=== PATIENT | female | born 1955 | race Caucasian/White ===

== ENCOUNTER 2018-12-19 19:26 | Emergency (ER) | payer MEDICARE ==
[~2018-12-19] VITALS: Ht 165.1 cm; Wt 63.6 kg
[~2018-12-19 19:26] MED LIST: ALPR-624 PO; ASPI-1265 PO; DESV100T2 PO; ESOM20CA33 PO; EXEN2VIA SQ; LANTUS SQ; MAGN400C PO; METF500T PO; PREVCR VG; TERB250T4 PO; VERA120T7 PO
[2018-12-19] MEDS ORDERED: LORazepam 2 mg/ml vial IV ONE (19:40)
--- NOTE | 2018-12-19 20:28 | NUR ---
PT RETURNED FROM CT. PT WAS COOPERATIVE AND CALM FOR CT. SHE CONTINUES TO MOAN OUT AND CRY LOUDLY INTERMITTENTY. HR 101.
--- NOTE | 2018-12-19 21:09 | NUR ---
PT NEEDS DERMABOND AT BEDSIDE FOR EAR LAC REPAIR, ITEM OUT OF STOCK IN ER, FORENSIC ANTHROPOLOGIST AWARE AND LOOKING FOR IT NOW.
[2018-12-19] MEDS ORDERED: normal saline 1000ML IV soln IVB ONE (22:00)
[2018-12-19 22:27] LABS: BASOPHILS # (AUTO) 0.1 X10'3 (0-0.2); BASOPHILS % (AUTO) 0.8 % (0-1); EOSINOPHILS % (AUTO) 0.2 % (0-6); HEMATOCRIT 37.9 % (35.0-45.0); HEMOGLOBIN 12.6 g/dl (12.0-16.0); LYMPHOCYTES # (AUTO) 1.4 X10'3 (1.1-4.8); LYMPHOCYTES % (AUTO) 19.7 % (21-51); MEAN CORPUSCULAR HEMOGLOBIN 31.7 PG (27.0-31.0); MEAN CORPUSCULAR HGB CONC 33.2 g/dL (33.0-36.5); MEAN CORPUSCULAR VOLUME 95.3 FL (78-98); MONOCYTES # (AUTO) 0.4 X10'3 (0-0.9); MONOCYTES % (AUTO) 5.6 % (2-12); NEUTROPHILS # (AUTO) 5.4 X10'3 (1.8-7.7); NEUTROPHILS % (AUTO) 73.7 % (42-75); PLATELET COUNT 250 X10'3 (140-440); RED BLOOD COUNT 3.97 X10'6 (4.20-5.60); RED CELL DISTRIBUTION WIDTH 13.6 % (11.5-14.5); WHITE BLOOD COUNT 7.3 X10'3 (4.5-11.0)
[2018-12-19 22:53] LABS: ETHANOL 0.223 GM/DL (0.0-0.010)
[2018-12-19 23:34] LABS: GLUCOSE 275 MG/DL (70-104)
[2018-12-19 23:35] LABS: ANION GAP 13 (8-16); BILIRUBIN,TOTAL 0.2 MG/DL (0.1-1.0); BLOOD UREA NITROGEN 6 MG/DL (7-18); BUN/CREATININE RATIO 9.1 (6.6-38.0); CALCIUM 8.4 MG/DL (8.5-10.1); CHLORIDE 103 MMOL/L (99-107); CREATININE 0.66 MG/DL (0.40-0.90); MAGNESIUM 1.1 MG/DL (1.5-2.4); PHOSPHORUS 2.2 MG/DL (2.3-4.5); POTASSIUM 3.5 MMOL/L (3.5-5.1); SODIUM 139 MMOL/L (135-145); TOTAL CARBON DIOXIDE 22.9 MMOL/L (24-32); eGFR > 90 ML/MIN
[2018-12-19 23:36] LABS: ALANINE AMINOTRANSFERASE 28 U/L (12-78); ALBUMIN 3.3 G/DL (3.4-5.0); ALBUMIN/GLOBULIN RATIO 0.9 (1.1-1.5); ALKALINE PHOSPHATASE 71 IU/L (46-116); ASPARTATE AMINO TRANSFERASE 40 U/L (10-37); TOTAL PROTEIN 6.9 G/DL (6.4-8.2)
[2018-12-19] MEDS ORDERED: magnesium 2GM in 50ml NS 50 ML IV ONE (23:40)
[2018-12-20] MEDS ORDERED: HYDROcodone/acetaminophen 5mg/325mg tablet PO ONE (02:05)
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
[2018-12-20 02:38] LABS: URINE AMPHETAMINE SCREEN NEGATIVE (Neg); URINE BARBITUATE SCREEN NEGATIVE (Neg); URINE BENZODIAZEPINES SCREEN POSITIVE (Neg); URINE CANNABINOID SCREEN NEGATIVE (Neg); URINE COCAINE SCREEN NEGATIVE (Neg); URINE METHADONE SCREEN NEGATIVE (Neg); URINE OPIATE SCREEN NEGATIVE (Neg); URINE PHENCYCLIDINE SCREEN NEGATIVE (Neg)
--- NOTE | 2018-12-20 04:49 | NUR ---
PT REMAINS ASLEEP WITH STABLE VS.
[2018-12-20 06:16] VITALS: BP 155/95
--- NOTE | 2018-12-20 07:37 | NUR ---
PATIENT REMAINS ASLEEP ON [facility]. NURSE ATTEMPTED TO CALL CONTACT PHONE NUMBERS FOR [phone] AND DAUGHTER [phone]. NO ANSWER AT EITHER PHONE NUMBER AND UNABLE TO LEAVE MESSAGE.
--- NOTE | 2018-12-20 08:51 | NUR ---
AWAKE AND ORIENTED. PATIENT CALLED FAMILY FOR TRANSPORTATION, BUT UNABLE TO GET A RIDE FROM ANYONE. PATIENT WILL TAKE CAB TO DAUGHTER'S APARTMENT. UP TO BATHROOM TO WASH UP.
[2018-12-20] MEDS ORDERED: LIDOcaine 1% w/epiNEPHrine 1:200,000 30ml vial IM ONE (09:00)
--- NOTE | 2018-12-20 09:50 | NUR ---
PATIENT HAS LAC TO LEFT EAR PINNA. SUTURES ARE INDICATED PER ER MD. PATIENT INFORMED AND AGREES. RESTING ON JÚNIOR.
--- NOTE | 2018-12-20 10:30 | NUR ---
SUTURES TO LEFT EAR LAC PER PROVIDER. TOLERATED WELL.
--- NOTE | 2018-12-20 10:50 | NUR ---
UP IN ROOM. DRESSED FOR DC. IV REMOVED WITH TIP INTACT. TRANSPORTATION ARRANGEMENTS WITH CAB MADE. JUICE AND SNACK GIVEN.
== END 2018-12-20 11:05 | disposition home or self-care (01) ==
LOC: ER 19:26
DX: S01.81XA Laceration without foreign body of other part of head, initial encounter (principal); S01.312A Laceration without foreign body of left ear, initial encounter; E78.00 Pure hypercholesterolemia, unspecified; I10 Essential (primary) hypertension; E11.9 Type 2 diabetes mellitus without complications; F41.9 Anxiety disorder, unspecified; F32.9 Major depressive disorder, single episode, unspecified; F20.9 Schizophrenia, unspecified; Z90.710 Acquired absence of both cervix and uterus; Z88.2 Allergy status to sulfonamides; Z88.1 Allergy status to other antibiotic agents; Z79.82 Long term (current) use of aspirin; Z79.84 Long term (current) use of oral hypoglycemic drugs; Z79.899 Other long term (current) drug therapy; Z98.890 Other specified postprocedural states; W18.09XA Striking against other object with subsequent fall, initial encounter; Y93.89 Activity, other specified; Y92.89 Other specified places as the place of occurrence of the external cause; Y99.8 Other external cause status
CPT/HCPCS: 12011; 36415; 70450; 71045; 72125; 80053; 80305; 80320; 83735; 84100; 84484; 85025; 96365; 96366; 96375; 99284; J2060; J3475; J7030

== ENCOUNTER 2019-01-21 14:07 | Emergency (ER) | payer MEDICARE ==
[~2019-01-21] VITALS: Ht 165.1 cm; Wt 54.0 kg
[2019-01-21] MEDS ORDERED: ondansetron/PF 4mg/2ml inj IV ONE (15:40)
[2019-01-21] MEDS ORDERED: meclizine 12.5mg tablet PO ONE (15:40)
[2019-01-21 16:18] LABS: BASOPHILS # (AUTO) 0.1 X10'3 (0-0.2); BASOPHILS % (AUTO) 1.1 % (0-1); EOSINOPHILS # (AUTO) 0.1 X10'3 (0-0.9); EOSINOPHILS % (AUTO) 0.9 % (0-6); HEMATOCRIT 37.3 % (35.0-45.0); HEMOGLOBIN 12.4 g/dl (12.0-16.0); LYMPHOCYTES # (AUTO) 1.6 X10'3 (1.1-4.8); LYMPHOCYTES % (AUTO) 25.9 % (21-51); MEAN CORPUSCULAR HEMOGLOBIN 31.8 PG (27.0-31.0); MEAN CORPUSCULAR HGB CONC 33.4 g/dL (33.0-36.5); MEAN CORPUSCULAR VOLUME 95.1 FL (78-98); MEAN PLATELET VOLUME 6.9 FL (7.4-10.4); MONOCYTES # (AUTO) 0.5 X10'3 (0-0.9); MONOCYTES % (AUTO) 7.2 % (2-12); NEUTROPHILS # (AUTO) 4.1 X10'3 (1.8-7.7); NEUTROPHILS % (AUTO) 64.9 % (42-75); PLATELET COUNT 254 X10'3 (140-440); RED BLOOD COUNT 3.92 X10'6 (4.20-5.60); RED CELL DISTRIBUTION WIDTH 14.1 % (11.5-14.5); WHITE BLOOD COUNT 6.3 X10'3 (4.5-11.0)
[2019-01-21 16:40] LABS: ALBUMIN 3.4 G/DL (3.4-5.0); ALBUMIN/GLOBULIN RATIO 0.9 (1.1-1.5); ALKALINE PHOSPHATASE 113 IU/L (46-116); ANION GAP 7 (8-16); ASPARTATE AMINO TRANSFERASE 12 U/L (10-37); BILIRUBIN,TOTAL 0.2 MG/DL (0.1-1.0); BLOOD UREA NITROGEN 8 MG/DL (7-18); BUN/CREATININE RATIO 12.1 (6.6-38.0); CALCIUM 8.5 MG/DL (8.5-10.1); CHLORIDE 104 MMOL/L (99-107); CREATININE 0.66 MG/DL (0.40-0.90); GLUCOSE 272 MG/DL (70-104); POTASSIUM 3.8 MMOL/L (3.5-5.1); SODIUM 141 MMOL/L (135-145); TOTAL CARBON DIOXIDE 29.6 MMOL/L (24-32); TROPONIN I < 0.04 NG/ML (0.0-0.05); eGFR > 90 ML/MIN
[2019-01-21 16:53] LABS: ETHANOL < 0.010 GM/DL (0.0-0.010)
[2019-01-21 16:57] LABS: ALANINE AMINOTRANSFERASE 15 U/L (12-78)
[2019-01-21 17:35] LABS: CLARITY,URINE CLOUDY (Clear); COLOR,URINE YELLOW (Yellow); GLUCOSE, URINE >=1000 mg/dl (Neg); KETONES,URINE TRACE mg/dl (Neg); LEUKOCYTE ESTERASE ,URINE SMALL (Neg); NITRITES, URINE NEGATIVE (Neg); OCCULT BLOOD,URINE NEGATIVE (Neg); PROTEIN,URINE NEGATIVE (Neg); UA COLLECTION TYPE CLN CATCH MIDSTREAM; UROBILINOGEN,URINE 0.2 E.U/dL (0.2-1.0)
[2019-01-21 17:46] LABS: RBC,URINE NONE SEEN /HPF (0-2); URINE AMPHETAMINE SCREEN NEGATIVE (Neg); URINE BARBITUATE SCREEN NEGATIVE (Neg); URINE BENZODIAZEPINES SCREEN POSITIVE (Neg); URINE CANNABINOID SCREEN NEGATIVE (Neg); URINE COCAINE SCREEN NEGATIVE (Neg); URINE METHADONE SCREEN NEGATIVE (Neg); URINE OPIATE SCREEN NEGATIVE (Neg); URINE PHENCYCLIDINE SCREEN NEGATIVE (Neg); WBC,URINE 30-50 /HPF (0-4)
[2019-01-21 17:47] LABS: BACTERIA,URINE 4+ /HPF (Neg); TRANSITIONAL EPI CELLS,URINE FEW /HPF; WBC CLUMPS,URINE FEW /HPF (NEGATIVE)
[2019-01-21 17:48] LABS: SQUAMOUS EPITHELIAL CELL,UR MODERATE /LPF (FEW)
[2019-01-21 17:51] LABS: YEAST MANY /HPF (NEGATIVE)
[2019-01-21] MEDS ORDERED: CefTRIAXone 2gm/D5W 50ml 50 ML IV ONE (18:10)
[2019-01-21] MEDS ORDERED: ONDA8TAB6 PO (18:29)
[2019-01-21] MEDS ORDERED: MECL-111 PO (18:29)
[2019-01-21] MEDS ORDERED: CIPR-230 PO (18:29)
[2019-01-21 18:51] VITALS: BP 135/66
== END 2019-01-21 18:52 | disposition home or self-care (01) ==
LOC: ER 14:07
DX: H81.10 Benign paroxysmal vertigo, unspecified ear (principal); N39.0 Urinary tract infection, site not specified; E78.00 Pure hypercholesterolemia, unspecified; I10 Essential (primary) hypertension; E11.9 Type 2 diabetes mellitus without complications; F41.9 Anxiety disorder, unspecified; F32.9 Major depressive disorder, single episode, unspecified; F20.9 Schizophrenia, unspecified; Z90.710 Acquired absence of both cervix and uterus; Z98.890 Other specified postprocedural states; Z88.2 Allergy status to sulfonamides; Z88.1 Allergy status to other antibiotic agents; Z79.82 Long term (current) use of aspirin; Z79.4 Long term (current) use of insulin; Z79.899 Other long term (current) drug therapy
CPT/HCPCS: 36415; 70450; 71045; 80053; 80305; 80320; 81001; 82140; 84484; 85025; 85610; 87088; 93005; 96365; 96375; 99284; J0696; J2405; J8597

== ENCOUNTER 2019-03-05 21:14 | Emergency (ER) | payer MEDICARE ==
[~2019-03-05] VITALS: Ht 162.6 cm; Wt 63.6 kg
[~2019-03-05 21:14] MED LIST changes: +MECL-111 PO; +ONDA8TAB6 PO
--- NOTE | 2019-03-05 21:45 | NUR ---
CONTACTED POISON CONTROL DIRECTED TO ACCOMPLISH CHEM PANEL, ASA, TYLENOL,OBSERVE FOR THE NEXT 4 HRS FOR CONTINUED PARACHUTIST/COMBATANT DIVER QUALIFIED DEPRESSION AND SEDATION
[2019-03-05 22:01] LABS: BASOPHILS % (AUTO) 0.5 % (0-1); EOSINOPHILS # (AUTO) 0.1 X10'3 (0-0.9); EOSINOPHILS % (AUTO) 1.8 % (0-6); HEMOGLOBIN 11.9 g/dl (12.0-16.0); LYMPHOCYTES # (AUTO) 1.9 X10'3 (1.1-4.8); LYMPHOCYTES % (AUTO) 33.3 % (21-51); MEAN CORPUSCULAR HEMOGLOBIN 31.4 PG (27.0-31.0); MEAN CORPUSCULAR HGB CONC 33.2 g/dL (33.0-36.5); MEAN CORPUSCULAR VOLUME 94.8 FL (78-98); MEAN PLATELET VOLUME 6.7 FL (7.4-10.4); MONOCYTES # (AUTO) 0.4 X10'3 (0-0.9); MONOCYTES % (AUTO) 6.4 % (2-12); NEUTROPHILS # (AUTO) 3.3 X10'3 (1.8-7.7); PLATELET COUNT 328 X10'3 (140-440); RED CELL DISTRIBUTION WIDTH 14.6 % (11.5-14.5); WHITE BLOOD COUNT 5.6 X10'3 (4.5-11.0)
[2019-03-05 22:08] LABS: CLARITY,URINE CLEAR (Clear); COLOR,URINE YELLOW (Yellow); GLUCOSE, URINE >=1000 mg/dl (Neg); KETONES,URINE NEGATIVE (Neg); LEUKOCYTE ESTERASE ,URINE NEGATIVE (Neg); NITRITES, URINE NEGATIVE (Neg); OCCULT BLOOD,URINE TRACE-INTACT (Neg); PROTEIN,URINE NEGATIVE (Neg); UROBILINOGEN,URINE 0.2 E.U/dL (0.2-1.0)
[2019-03-05 22:11] LABS: UA COLLECTION TYPE NON-SPECIFIED
[2019-03-05 22:18] LABS: ALANINE AMINOTRANSFERASE 18 U/L (12-78); ALBUMIN 3.2 G/DL (3.4-5.0); ALBUMIN/GLOBULIN RATIO 0.8 (1.1-1.5); ALKALINE PHOSPHATASE 148 IU/L (46-116); ANION GAP 9 (8-16); ASPARTATE AMINO TRANSFERASE 17 U/L (10-37); BILIRUBIN,TOTAL 0.2 MG/DL (0.1-1.0); BLOOD UREA NITROGEN 7 MG/DL (7-18); BUN/CREATININE RATIO 11.1 (6.6-38.0); CALCIUM 8.7 MG/DL (8.5-10.1); CHLORIDE 106 MMOL/L (99-107); CREATININE 0.63 MG/DL (0.40-0.90); GLUCOSE 398 MG/DL (70-104); POTASSIUM 3.2 MMOL/L (3.5-5.1); SODIUM 143 MMOL/L (135-145); TOTAL PROTEIN 7.2 G/DL (6.4-8.2); eGFR > 90 ML/MIN
[2019-03-05 22:21] LABS: URINE AMPHETAMINE SCREEN NEGATIVE (Neg); URINE BARBITUATE SCREEN NEGATIVE (Neg); URINE BENZODIAZEPINES SCREEN NEGATIVE (Neg); URINE CANNABINOID SCREEN NEGATIVE (Neg); URINE COCAINE SCREEN NEGATIVE (Neg); URINE METHADONE SCREEN NEGATIVE (Neg); URINE OPIATE SCREEN NEGATIVE (Neg); URINE PHENCYCLIDINE SCREEN NEGATIVE (Neg)
[2019-03-05 22:22] LABS: BACTERIA,URINE FEW /HPF (Neg); MUCUS STRANDS NONE SEEN /LPF (Neg); RBC,URINE 0-2 /HPF (0-2); SQUAMOUS EPITHELIAL CELL,UR MANY /LPF (FEW); WBC,URINE 0-4 /HPF (0-4)
[2019-03-05 22:31] LABS: ETHANOL 0.175 GM/DL (0.0-0.010)
[2019-03-05] MEDS ORDERED: potassium Cl 20 mEq SR tablet PO STA (22:33)
[2019-03-05 22:34] LABS: ACETAMINOPHEN < 2.0 UG/ML (10-30)
[2019-03-05] MEDS ORDERED: insulin regular, human 10 units/0.1 ml syringe IV ONE (22:35)
[2019-03-05] MEDS ORDERED: normal saline 1000ML IV soln IVB ONE (22:35)
[2019-03-05] MEDS ORDERED: dextrose 50%-water 50ml dispensing syringe IV PRN ×2 (22:55)
[2019-03-05] MEDS ORDERED: dextrose ORAL solution 15 GM/59 ML bottle PO PRN ×2 (22:55)
[2019-03-05] MEDS ORDERED: glucagon, human recombinant 1mg kit SUBCUT PRN (22:55)
[2019-03-05] MEDS ORDERED: insulin Lispro (HumaLOG) vial - multi-dose SQ SCH (22:55)
[2019-03-05] MEDS ORDERED: MESSAGE TO PHARMACY PO ONE (22:55)
--- NOTE | 2019-03-05 23:16 | NUR ---
pt affirms s/i saying, "we lost everything. 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 my has dementia. we live in our van. I get depressed and took 5 xanax." pt reports being on antidepressants, but is unable to specify which one, currently. she is aox3. pt denies audio/visual hallucinations at this time. she is somnolent, but easily arousable and will engage if interaction initiated by others.
[2019-03-05 23:57] LABS: HEMOGLOBIN A1C 10.2 % (4.5-6.2)
--- NOTE | 2019-03-06 02:57 | NUR ---
PT REPORT PROVDED ADILENE NUNEZ. PT ESCORTED BY THIS RN TO OF BED 22.
--- NOTE | 2019-03-06 03:22 | NUR ---
The patient moved to bed 22 in the ER. Warm blanket provided. She was made aware of the psychiatric hold and plan of care was reviewed with her. She currently denies being suicidal but does state she has been very depressed and struggling with anxiety and poor sleep. She stated that she has had a lot of losses with her being ill and having dementia which caused them to lose their home. Recently they have being either living in a motel or in their car. She also has been drinking heavily and she reports she drinks approximately every third day. When she presented to the ER her BA was 0.175. She denies psychotic symptoms and none were evident during the asssessment. She is very sleepy but cooperative. She stated that she receivs psychiatric care throught the [facility] but had difficulty naming her current medications.
--- NOTE | 2019-03-06 05:47 | NUR ---
The patient appears to be asleep at this time.
--- NOTE | 2019-03-06 06:30 | NUR ---
Patient sleeping soundly in supine position.
--- NOTE | 2019-03-06 07:39 | NUR ---
Accucheck complete. Patient aroousable.
--- NOTE | 2019-03-06 08:05 | NUR ---
took disposition location off because the pt hasn't been evaluated yet by [facility] and the [facility] office wasn't going to set up for eval because it looked like the pt was already being discharged.
--- NOTE | 2019-03-06 09:00 | NUR ---
Talked with poison control. Labs and patient condition discussed. Patient at near baseline, doing well. Will continue to observe. Cleared from Poison Control.
--- NOTE | 2019-03-06 11:00 | NUR ---
at bedside, good, loving interaction. Call at [phone] with update info.
--- NOTE | 2019-03-06 11:30 | NUR ---
Asleep on right side. No distress.
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
--- NOTE | 2019-03-06 14:00 | NUR ---
The patient is being discharged to home and does not want to take insulin offered per protocol. She will treat herself with her home medications upon discharge.
[2019-03-06 14:41] VITALS: BP 122/66
[2019-03-06] MEDS ORDERED: insulin glargine (Lantus) pen - multi-dose SQ SCH (21:00)
== END 2019-03-06 14:47 | disposition home or self-care (01) ==
LOC: ER 21:14
DX: T42.6X2A Poisoning by other antiepileptic and sedative-hypnotic drugs, intentional self-harm, initial encounter (principal); E87.6 Hypokalemia; F10.929 Alcohol use, unspecified with intoxication, unspecified; E11.9 Type 2 diabetes mellitus without complications; E78.00 Pure hypercholesterolemia, unspecified; I10 Essential (primary) hypertension; Z90.710 Acquired absence of both cervix and uterus; Z98.890 Other specified postprocedural states; Z88.2 Allergy status to sulfonamides; Z88.3 Allergy status to other anti-infective agents; Z79.82 Long term (current) use of aspirin; Z79.899 Other long term (current) drug therapy; Z79.4 Long term (current) use of insulin; Y92.89 Other specified places as the place of occurrence of the external cause; Y90.9 Presence of alcohol in blood, level not specified
CPT/HCPCS: 36415; 80053; 80305; 80320; 80329; 81001; 82948; 83036; 84443; 85025; 93005; 96374; 99284; J1815; J7030

== ENCOUNTER 2019-06-15 20:05 | Emergency (ER) | payer MEDICARE ==
[~2019-06-15 20:05] MED LIST changes: -MECL-111 PO; +MECL-159 PO; +VERA120T19 PO; -VERA120T7 PO
[2019-06-15 20:36] LABS: BASOPHILS # (AUTO) 0.1 X10'3 (0-0.2); BASOPHILS % (AUTO) 0.6 % (0-1); EOSINOPHILS # (AUTO) 0.1 X10'3 (0-0.9); EOSINOPHILS % (AUTO) 0.7 % (0-6); HEMATOCRIT 38.6 % (35.0-45.0); HEMOGLOBIN 13.1 g/dl (12.0-16.0); LYMPHOCYTES # (AUTO) 2.5 X10'3 (1.1-4.8); LYMPHOCYTES % (AUTO) 27.2 % (21-51); MEAN CORPUSCULAR HEMOGLOBIN 31.4 PG (27.0-31.0); MEAN CORPUSCULAR VOLUME 92.4 FL (78-98); MEAN PLATELET VOLUME 7.3 FL (7.4-10.4); MONOCYTES # (AUTO) 0.5 X10'3 (0-0.9); MONOCYTES % (AUTO) 5.7 % (2-12); NEUTROPHILS # (AUTO) 6.1 X10'3 (1.8-7.7); NEUTROPHILS % (AUTO) 65.8 % (42-75); PLATELET COUNT 297 X10'3 (140-440); RED BLOOD COUNT 4.18 X10'6 (4.20-5.60); RED CELL DISTRIBUTION WIDTH 15.1 % (11.5-14.5); WHITE BLOOD COUNT 9.3 X10'3 (4.5-11.0)
[2019-06-15 20:52] LABS: ALANINE AMINOTRANSFERASE 32 U/L (12-78); ALBUMIN 3.7 G/DL (3.4-5.0); ALBUMIN/GLOBULIN RATIO 0.9 (1.1-1.5); ALKALINE PHOSPHATASE 130 IU/L (46-116); ANION GAP 11 (8-16); ASPARTATE AMINO TRANSFERASE 73 U/L (10-37); BILIRUBIN,TOTAL 0.2 MG/DL (0.1-1.0); BLOOD UREA NITROGEN 9 MG/DL (7-18); BUN/CREATININE RATIO 12.3 (6.6-38.0); CALCIUM 8.3 MG/DL (8.5-10.1); CHLORIDE 99 MMOL/L (99-107); CREATININE 0.73 MG/DL (0.40-0.90); GLUCOSE 422 MG/DL (70-104); POTASSIUM 3.6 MMOL/L (3.5-5.1); SODIUM 139 MMOL/L (135-145); TOTAL CARBON DIOXIDE 28.6 MMOL/L (24-32); TOTAL PROTEIN 7.6 G/DL (6.4-8.2); eGFR 81 ML/MIN
--- NOTE | 2019-06-15 20:58 | NUR ---
POISON CONTROL CONTACTED, DELAY IN CONTACT DUE TO HIGH CALL VOLUME. RECOMMENDED LABS, [facility] ASPIRIN ACETOMENIPHEN, ETHANOL. ORDERED AND DRAW RESULTS PENDING AT THIS TIME. SUPPORTIVE CARE IV FLUIDS, RECOMMENDATION OF BANANA BAG. AWARE
[2019-06-15 21:00] LABS: ETHANOL 0.235 GM/DL (0.0-0.010)
[2019-06-15 21:04] LABS: ACETAMINOPHEN < 2.0 UG/ML (10-30)
[2019-06-15 21:10] LABS: CLARITY,URINE SLIGHTLY CLOUDY (Clear); COLOR,URINE YELLOW (Yellow); GLUCOSE, URINE >=1000 mg/dl (Neg); KETONES,URINE NEGATIVE (Neg); LEUKOCYTE ESTERASE ,URINE SMALL (Neg); NITRITES, URINE NEGATIVE (Neg); OCCULT BLOOD,URINE TRACE-INTACT (Neg); PROTEIN,URINE NEGATIVE (Neg); UROBILINOGEN,URINE 0.2 E.U/dL (0.2-1.0)
[2019-06-15 21:20] LABS: UA COLLECTION TYPE STRAIGHT CATH
[2019-06-15 21:21] LABS: URINE AMPHETAMINE SCREEN NEGATIVE (Neg); URINE BARBITUATE SCREEN NEGATIVE (Neg); URINE BENZODIAZEPINES SCREEN POSITIVE (Neg); URINE CANNABINOID SCREEN NEGATIVE (Neg); URINE COCAINE SCREEN NEGATIVE (Neg); URINE METHADONE SCREEN NEGATIVE (Neg); URINE OPIATE SCREEN NEGATIVE (Neg); URINE PHENCYCLIDINE SCREEN NEGATIVE (Neg)
[2019-06-15 21:24] LABS: RBC,URINE NONE SEEN /HPF (0-2)
[2019-06-15 21:25] LABS: BACTERIA,URINE NONE SEEN /HPF (Neg); SQUAMOUS EPITHELIAL CELL,UR FEW /LPF (FEW); WBC CLUMPS,URINE MODERATE /HPF (NEGATIVE); YEAST MODERATE /HPF (NEGATIVE)
[2019-06-15] MEDS ORDERED: insulin regular, human 10 units/0.1 ml syringe IV ONE (21:30)
[2019-06-15] MEDS ORDERED: normal saline 1000ML IV soln IVB ONE (21:30)
[2019-06-15] MEDS ORDERED: CefTRIAXone/D5W-Rocephin 1gm 50 ML IV ONE (21:45)
--- NOTE | 2019-06-15 22:02 | NUR ---
Pt moved to bed 15, assumed care of the patient. Pt is confused and unsteady on her feet. Pt found with green scrub pants on the floor and attempting to get to the bedside commode. Pt assisted to the bedside commode and back to the bed to prevent falling. Pt placed in a clean, dry pair of green scrub pants.
--- NOTE | 2019-06-15 23:23 | NUR ---
Poison control called and recommended redraw for LFT and ETOH level at 4 hours post initial draw. Pt is alert and more oriented at this time, calm and cooperative
[2019-06-16] MEDS ORDERED: ASPI-1130 PO (00:29)
[2019-06-16] MEDS ORDERED: PRAV40TA3 PO (00:29)
[2019-06-16] MEDS ORDERED: DILT-35 PO (00:29)
[2019-06-16] MEDS ORDERED: METF500T20 PO (00:29)
[2019-06-16] MEDS ORDERED: EXEN2PEN IM (00:29)
[2019-06-16] MEDS ORDERED: DESV100T16 PO (00:29)
[2019-06-16] MEDS ORDERED: ESOM40CA49 (00:29)
[2019-06-16] MEDS ORDERED: ESOM40CA2 PO (00:29)
[2019-06-16] MEDS ORDERED: ESTR0.5T28 PO (00:29)
--- NOTE | 2019-06-16 00:30 | NUR ---
UPON ASSUMING CARE OF PATIENT, REPORT WAS GIVEN BY ADILENE WELLS WHO REPORTED THAT DR BECKHAM IS AWARE OF POISION CONTROLS RECOMENDATION OF REPEAT LFTS BUT DECLINED THE REPEAT .
--- NOTE | 2019-06-16 00:30 | NUR ---
Pt resting with even and unlabored respirations. Sitter at bedside.
--- NOTE | 2019-06-16 00:30 | NUR ---
PERSONAL BELONGING LIST DONE , PATIENT UNABLE TO SIGN SHE IS ASLEEP
--- NOTE | 2019-06-16 00:35 | NUR ---
ASSUMED CARE OF PT ASLEEP ON HER LEFT SIDE RESP UNLABORED IN THE LINE OF SITE OF STAFF . WILL CONTINUE TO MONITOR AND REASSESS
--- NOTE | 2019-06-16 01:30 | NUR ---
NO CHANGES TO PREVIOUS ASSESMENT PT ASLEEP ON HER BACK RESP UNLABORED WILL CONTINUE TO REASSESS IN THE LINE OF RYANHT OF STAFF
[2019-06-16] MEDS ORDERED: insulin Lispro (HumaLOG) vial - multi-dose SQ SCH (01:45)
[2019-06-16] MEDS ORDERED: MESSAGE TO PHARMACY PO ONE (01:45)
[2019-06-16] MEDS ORDERED: glucagon, human recombinant 1mg kit SUBCUT PRN ×3 (01:45)
[2019-06-16] MEDS ORDERED: dextrose 50%-water 50ml dispensing syringe IV PRN ×6 (01:45)
[2019-06-16] MEDS ORDERED: dextrose ORAL solution 15 GM/59 ML bottle PO PRN ×6 (01:45)
[2019-06-16 01:59] LABS: HEMOGLOBIN A1C 11.1 % (4.5-6.2)
--- NOTE | 2019-06-16 02:00 | NUR ---
JOSE C VALDEZ SIGNED ND FAXED TO PHARMACY
--- NOTE | 2019-06-16 02:39 | NUR ---
NO CHANGES TO PREVIOUS ASSESMENT PT NOW SLEEPING ON HER LEFT SIDE RESP UNLABORED WILL CONTINUE TO MONITOR AND REASSESS
--- NOTE | 2019-06-16 03:30 | NUR ---
PT STARTING TO AWAKE UP OUT OF BED TO BATHROOM ASKING FOR WATER . IN THE LINE OF SITE OF STAFF . RESP UNLABORED WILLCONTINUE TO MONITER AND REASSESS. PT WAS ABLE TO SPEAK IN FULL SENTENACES AND HAD STEADY GAIT SHE AMBULATED TO BATHROOM PER MAXIME CAMACHO REPORT
--- NOTE | 2019-06-16 04:31 | NUR ---
PT ASLEEP ON HER BACK RESP UNLABORED , WHEN ENTERING ROOM PT OPENS EYES AND THEN GOES RIGHT BACK TO SLEEP WILL CONTINUE TO ASSESS AND MONITOR
--- NOTE | 2019-06-16 05:01 | NUR ---
PT SLEEPING ON HER RIGHT SIDE. RESP UNLABORED, IN THE LINE OF SITE OF STAFF , WILLL CONTINUE TO MONITOR AND REASSESS.
--- NOTE | 2019-06-16 05:03 | NUR ---
PACKET FAXED TO [facility]
[2019-06-16 05:52] VITALS: BP 107/65
--- NOTE | 2019-06-16 05:53 | NUR ---
PT RESTING PEACFULLY , TAKATIVE WITH VSS . WILL CONTINUE TO ASSESS AND MONITOR
--- NOTE | 2019-06-16 07:29 | NUR ---
PT IS SLEEPING, RESPIRATIONS SPONTANEOUS, EVEN AND UNLABORED, NO S/S OF DISTRESS, DISCOMFORT OR AGITATION AT THIS TIME.
[2019-06-16] MEDS ORDERED: cephalexin 500mg capsule PO SCH (08:00)
[2019-06-16] MEDS ORDERED: ALPR1TAB7 PO (08:16)
--- NOTE | 2019-06-16 08:51 | NUR ---
PT AMBULATORY TO THE BATHROOM WITH STEADY GAIT, PT BACK TO BED 15, CALLED JIM WITH [facility] GAVE SBAR REPORT, PT TO BE EVALUATED BY [facility] SOMETIME THIS MORNING WILL CALL IF [facility] UPHOLDS [phone] TO HAVE PT BROUGHT UP TO [facility]
--- NOTE | 2019-06-16 09:04 | NUR ---
RECEIVED CALL FROM [facility] POISON CONTROL REQUESTED REPEAT LIVER PANEL TO DETERMINE IF INCREASING OR ELEVATED DUE TO PT ETOH USE.
[2019-06-16 10:48] LABS: ALANINE AMINOTRANSFERASE 28 U/L (12-78); ALBUMIN 2.8 G/DL (3.4-5.0); ALBUMIN/GLOBULIN RATIO 0.9 (1.1-1.5); ALKALINE PHOSPHATASE 78 IU/L (46-116); ASPARTATE AMINO TRANSFERASE 52 U/L (10-37); BILIRUBIN,TOTAL 0.2 MG/DL (0.1-1.0)
--- NOTE | 2019-06-16 12:02 | NUR ---
STEFANY JARAMILLO, REY CALLED REQUESTING AST, ALT. LABS ARE TRENDING DOWN TO NORMAL. REY CAUSEY WILL BE CPOSING THE CASE.
--- NOTE | 2019-06-16 12:05 | NUR ---
PER KENROY CASTILLO FOR PT TO GO TO [facility], PT HAS NOT BEEN EVALAUTED BY [facility].
[2019-06-16] MEDS ORDERED: PHEN-557 PO (20:21)
[2019-06-16] MEDS ORDERED: CYAN-51 PO (20:21)
[2019-06-16] MEDS ORDERED: PENI500T2 PO (20:21)
[2019-06-16] MEDS ORDERED: CLOB15CR4 TOP (20:21)
[2019-06-16] MEDS ORDERED: CHOL400C8 PO (20:21)
[2019-06-16] MEDS ORDERED: TRIA15CR62 TP (20:21)
[2019-06-16] MEDS ORDERED: MECL-159 PO (20:21)
[2019-06-16] MEDS ORDERED: ALPR1TAB2 PO (20:21)
[2019-06-16] MEDS ORDERED: HYDR-3686 PO (20:21)
[2019-06-16] MEDS ORDERED: MAGN400T28 PO (20:21)
[2019-06-16] MEDS ORDERED: CYCL-394 PO (20:21)
[2019-06-16] MEDS ORDERED: insulin glargine (Lantus) pen - multi-dose SQ SCH ×2 (21:00)
[2019-06-17] MEDS ORDERED: CEPH500C5 PO (16:44)
== END 2019-06-16 12:28 | disposition home or self-care (01) ==
LOC: ER 20:06
DX: F10.129 Alcohol abuse with intoxication, unspecified (principal); F32.9 Major depressive disorder, single episode, unspecified; R45.851 Suicidal ideations; E11.9 Type 2 diabetes mellitus without complications; N39.0 Urinary tract infection, site not specified; E78.00 Pure hypercholesterolemia, unspecified; I10 Essential (primary) hypertension; F41.9 Anxiety disorder, unspecified; Z90.710 Acquired absence of both cervix and uterus; Z98.890 Other specified postprocedural states; Z88.2 Allergy status to sulfonamides; Z88.3 Allergy status to other anti-infective agents; Z79.82 Long term (current) use of aspirin; Z79.4 Long term (current) use of insulin; Z79.899 Other long term (current) drug therapy; Y90.9 Presence of alcohol in blood, level not specified
CPT/HCPCS: 36415; 80053; 80076; 80305; 80320; 80329; 81001; 82948; 83036; 84443; 85025; 96365; 96375; 99285; J0696; J1815; J7030

== ENCOUNTER 2019-09-12 14:16 | Emergency (ER) | payer MEDICARE, OTHER ==
[~2019-09-12] VITALS: Ht 165.1 cm; Wt 63.6 kg
[~2019-09-12 14:16] MED LIST changes: -ALPR-624 PO; +ALPR1TAB2 PO; +ASPI-1130 PO; -ASPI-1265 PO; +CEPH500C5 PO; +CHOL400C8 PO; +CLOB15CR4 TOP; +CYAN-51 PO; +CYCL-394 PO; +DESV100T16 PO; -DESV100T2 PO; +DILT-35 PO; -ESOM20CA33 PO; +ESOM40CA2 PO; +ESTR0.5T28 PO; +EXEN2PEN IM; -EXEN2VIA SQ; -LANTUS SQ; -MAGN400C PO; +MAGN400T28 PO; -METF500T PO; +METF500T20 PO; -ONDA8TAB6 PO; +PHEN-557 PO; +PRAV40TA3 PO; -PREVCR VG; -TERB250T4 PO; +TRIA15CR62 TP; -VERA120T19 PO
[2019-09-12] MEDS ORDERED: normal saline 1000ML IV soln IVB ONE (14:30)
[2019-09-12] MEDS ORDERED: ondansetron/PF 4mg/2ml inj IV ONE (14:30)
[2019-09-12 14:50] LABS: BASOPHILS # (AUTO) 0.1 X10'3 (0-0.2); BASOPHILS % (AUTO) 0.9 % (0-1); EOSINOPHILS # (AUTO) 0.1 X10'3 (0-0.9); EOSINOPHILS % (AUTO) 1.5 % (0-6); HEMATOCRIT 36.6 % (35.0-45.0); HEMOGLOBIN 12.1 g/dl (12.0-16.0); LYMPHOCYTES # (AUTO) 1.6 X10'3 (1.1-4.8); LYMPHOCYTES % (AUTO) 26.1 % (21-51); MEAN CORPUSCULAR HEMOGLOBIN 30.3 PG (27.0-31.0); MEAN CORPUSCULAR HGB CONC 32.9 g/dL (33.0-36.5); MEAN PLATELET VOLUME 7.1 FL (7.4-10.4); MONOCYTES # (AUTO) 0.4 X10'3 (0-0.9); NEUTROPHILS # (AUTO) 3.9 X10'3 (1.8-7.7); NEUTROPHILS % (AUTO) 64.5 % (42-75); PLATELET COUNT 243 X10'3 (140-440); RED BLOOD COUNT 3.98 X10'6 (4.20-5.60); RED CELL DISTRIBUTION WIDTH 15.1 % (11.5-14.5); WHITE BLOOD COUNT 6.1 X10'3 (4.5-11.0)
[2019-09-12 14:59] LABS: CLARITY,URINE CLEAR (Clear); COLOR,URINE YELLOW (Yellow); GLUCOSE, URINE NEGATIVE (Neg); KETONES,URINE 15 mg/dl (Neg); LEUKOCYTE ESTERASE ,URINE NEGATIVE (Neg); NITRITES, URINE NEGATIVE (Neg); OCCULT BLOOD,URINE NEGATIVE (Neg); PH,URINE 5.5 (4.8-8.0); PROTEIN,URINE NEGATIVE (Neg); UA COLLECTION TYPE CLN CATCH MIDSTREAM; UROBILINOGEN,URINE 0.2 E.U/dL (0.2-1.0)
[2019-09-12 15:04] LABS: ALANINE AMINOTRANSFERASE 17 U/L (12-78); ALBUMIN 3.5 G/DL (3.4-5.0); ALBUMIN/GLOBULIN RATIO 0.9 (1.1-1.5); ALKALINE PHOSPHATASE 102 IU/L (46-116); ANION GAP 9 (8-16); ASPARTATE AMINO TRANSFERASE 19 U/L (10-37); BILIRUBIN,TOTAL 0.5 MG/DL (0.1-1.0); BLOOD UREA NITROGEN 12 MG/DL (7-18); BUN/CREATININE RATIO 14.5 (6.6-38.0); CALCIUM 8.4 MG/DL (8.5-10.1); CHLORIDE 103 MMOL/L (99-107); CREATININE 0.83 MG/DL (0.40-0.90); GLUCOSE 261 MG/DL (70-104); LIPASE 64 U/L (73-393); SODIUM 140 MMOL/L (135-145); TOTAL CARBON DIOXIDE 27.8 MMOL/L (24-32); TOTAL PROTEIN 7.3 G/DL (6.4-8.2); eGFR 70 ML/MIN
--- NOTE | 2019-09-12 15:39 | NUR ---
relieving RN for break, pt is in CT
[2019-09-12 15:51] VITALS: BP 133/85
[2019-09-12] MEDS ORDERED: MECL-159 PO (16:32)
== END 2019-09-12 16:50 | disposition home or self-care (01) ==
LOC: ER 14:17
DX: S01.01XD Laceration without foreign body of scalp, subsequent encounter (principal); S09.90XD Unspecified injury of head, subsequent encounter; R51 Headache; R42 Dizziness and giddiness; E78.00 Pure hypercholesterolemia, unspecified; I10 Essential (primary) hypertension; E11.9 Type 2 diabetes mellitus without complications; F41.9 Anxiety disorder, unspecified; F32.9 Major depressive disorder, single episode, unspecified; F20.9 Schizophrenia, unspecified; Z90.710 Acquired absence of both cervix and uterus; Z98.890 Other specified postprocedural states; Z72.89 Other problems related to lifestyle; Z88.1 Allergy status to other antibiotic agents; Z88.2 Allergy status to sulfonamides; Z79.2 Long term (current) use of antibiotics; Z79.82 Long term (current) use of aspirin; Z79.899 Other long term (current) drug therapy; W19.XXXD Unspecified fall, subsequent encounter; Y93.89 Activity, other specified; Y92.89 Other specified places as the place of occurrence of the external cause; Y99.8 Other external cause status
CPT/HCPCS: 36415; 70450; 80053; 81003; 83690; 85025; 96374; 99285; J2405; J7030; 93005

== ENCOUNTER 2019-12-29 13:06 | Emergency (ER) | payer MEDICARE, OTHER ==
[~2019-12-29] VITALS: Ht 165.1 cm; Wt 66.5 kg
[~2019-12-29 13:06] MED LIST changes: -ASPI-1130 PO; +ASPI-1397 PO; +METF-900 PO; -METF500T20 PO
[2019-12-29] MEDS ORDERED: morphine 4 MG/ML inj SYRINge IV ONE (13:35)
[2019-12-29] MEDS ORDERED: ondansetron/PF 4mg/2ml inj IV ONE (13:35)
[2019-12-29 13:40] LABS: BASOPHILS # (AUTO) 0.1 X10'3 (0-0.2); EOSINOPHILS # (AUTO) 0.1 X10'3 (0-0.9); HEMATOCRIT 39.2 % (35.0-45.0); HEMOGLOBIN 12.7 g/dl (12.0-16.0); LYMPHOCYTES # (AUTO) 1.6 X10'3 (1.1-4.8); LYMPHOCYTES % (AUTO) 22.1 % (21-51); MEAN CORPUSCULAR HEMOGLOBIN 28.3 PG (27.0-31.0); MEAN CORPUSCULAR HGB CONC 32.4 g/dL (33.0-36.5); MEAN CORPUSCULAR VOLUME 87.4 FL (78-98); MONOCYTES # (AUTO) 0.6 X10'3 (0-0.9); MONOCYTES % (AUTO) 7.8 % (2-12); NEUTROPHILS # (AUTO) 4.9 X10'3 (1.8-7.7); NEUTROPHILS % (AUTO) 68.1 % (42-75); PLATELET COUNT 275 X10'3 (140-440); RED BLOOD COUNT 4.49 X10'6 (4.20-5.60); RED CELL DISTRIBUTION WIDTH 15.6 % (11.5-14.5); WHITE BLOOD COUNT 7.2 X10'3 (4.5-11.0)
[2019-12-29 13:54] LABS: ALANINE AMINOTRANSFERASE 21 U/L (12-78); ALBUMIN 3.7 G/DL (3.4-5.0); ALKALINE PHOSPHATASE 69 IU/L (46-116); AMYLASE 28 U/L (25-115); ANION GAP 4 (8-16); ASPARTATE AMINO TRANSFERASE 19 U/L (10-37); BILIRUBIN,TOTAL 0.4 MG/DL (0.1-1.0); BLOOD UREA NITROGEN 11 MG/DL (7-18); BUN/CREATININE RATIO 15.9 (6.6-38.0); CALCIUM 8.7 MG/DL (8.5-10.1); CHLORIDE 101 MMOL/L (99-107); CREATININE 0.69 MG/DL (0.40-0.90); GLUCOSE 234 MG/DL (70-104); LIPASE 60 U/L (73-393); SODIUM 138 MMOL/L (135-145); TOTAL CARBON DIOXIDE 32.7 MMOL/L (24-32); TOTAL PROTEIN 7.5 G/DL (6.4-8.2); eGFR 86 ML/MIN
[2019-12-29 13:54] LABS: URINE HCG NEGATIVE (NEG)
[2019-12-29 13:56] LABS: CLARITY,URINE CLEAR (Clear); COLOR,URINE YELLOW (Yellow); GLUCOSE, URINE 100 mg/dl (Neg); KETONES,URINE TRACE mg/dl (Neg); LEUKOCYTE ESTERASE ,URINE NEGATIVE (Neg); NITRITES, URINE NEGATIVE (Neg); OCCULT BLOOD,URINE TRACE-INTACT (Neg); PROTEIN,URINE NEGATIVE (Neg); UROBILINOGEN,URINE 0.2 E.U/dL (0.2-1.0)
[2019-12-29 14:09] LABS: UA COLLECTION TYPE CLN CATCH MIDSTREAM
[2019-12-29 14:10] LABS: MUCUS STRANDS FEW /LPF (Neg); SQUAMOUS EPITHELIAL CELL,UR MODERATE /LPF (FEW)
[2019-12-29 14:12] LABS: BACTERIA,URINE FEW /HPF (Neg)
[2019-12-29 14:13] LABS: WBC,URINE 0-4 /HPF (0-4)
[2019-12-29 14:14] LABS: TRANSITIONAL EPI CELLS,URINE FEW /HPF
[2019-12-29] MEDS ORDERED: ONDA4TAB6 PO (14:26)
[2019-12-29] MEDS ORDERED: CYCL-1 PO (14:26)
[2019-12-29 14:56] VITALS: BP 144/90
== END 2019-12-29 14:39 | disposition home or self-care (01) ==
LOC: ER 13:06
DX: R10.11 Right upper quadrant pain (principal); R11.0 Nausea; M54.6 Pain in thoracic spine; E78.00 Pure hypercholesterolemia, unspecified; I10 Essential (primary) hypertension; E11.9 Type 2 diabetes mellitus without complications; F41.9 Anxiety disorder, unspecified; F32.9 Major depressive disorder, single episode, unspecified; F20.9 Schizophrenia, unspecified; Z90.710 Acquired absence of both cervix and uterus; Z98.890 Other specified postprocedural states; Z72.89 Other problems related to lifestyle; Z88.2 Allergy status to sulfonamides; Z88.1 Allergy status to other antibiotic agents; Z79.82 Long term (current) use of aspirin; Z79.2 Long term (current) use of antibiotics; Z79.899 Other long term (current) drug therapy
CPT/HCPCS: 36415; 76700; 80053; 81001; 81025; 82150; 83690; 85025; 93005; 96374; 96375; 99285; J2270; J2405

== ENCOUNTER 2020-02-19 11:39 | Emergency (ER) | payer MEDICARE, OTHER ==
[~2020-02-19] VITALS: Ht 165.1 cm; Wt 68.2 kg
[~2020-02-19 11:39] MED LIST changes: +CYCL-1 PO; +ONDA4TAB6 PO
[2020-02-19] MEDS ORDERED: HYDR-4383 PO (14:23)
[2020-02-19 15:09] VITALS: BP 140/80
== END 2020-02-19 14:45 | disposition home or self-care (01) ==
LOC: ER 11:39
DX: S22.089A Unspecified fracture of T11-T12 vertebra, initial encounter for closed fracture (principal); S00.03XA Contusion of scalp, initial encounter; M54.5 Low back pain; E78.00 Pure hypercholesterolemia, unspecified; I10 Essential (primary) hypertension; E11.9 Type 2 diabetes mellitus without complications; F41.9 Anxiety disorder, unspecified; F32.9 Major depressive disorder, single episode, unspecified; F20.9 Schizophrenia, unspecified; Z90.710 Acquired absence of both cervix and uterus; Z98.890 Other specified postprocedural states; Z72.89 Other problems related to lifestyle; Z88.2 Allergy status to sulfonamides; Z88.8 Allergy status to other drugs, medicaments and biological substances; Z79.82 Long term (current) use of aspirin; Z79.899 Other long term (current) drug therapy; W01.0XXA Fall on same level from slipping, tripping and stumbling without subsequent striking against object, initial encounter; Y93.89 Activity, other specified; Y92.89 Other specified places as the place of occurrence of the external cause; Y99.8 Other external cause status
CPT/HCPCS: 72100; 99284

== ENCOUNTER 2020-09-16 06:39 | Emergency (ER) | payer MEDICARE, MEDICAID ==
[~2020-09-16] VITALS: Ht 165.1 cm; Wt 65.8 kg
[~2020-09-16 06:39] MED LIST changes: +CEPH-585 PO; -CEPH500C5 PO; +HYDR-4383 PO
[2020-09-16] MEDS ORDERED: LIDOcaine 1% W/epiNEPHrine 1:200,000 10ml vial IJ ONE (07:30)
[2020-09-16 11:31] VITALS: BP 147/78
== END 2020-09-16 11:32 | disposition home or self-care (01) ==
LOC: ER 06:39
DX: S01.01XA Laceration without foreign body of scalp, initial encounter (principal); M54.2 Cervicalgia; M25.551 Pain in right hip; E78.00 Pure hypercholesterolemia, unspecified; I10 Essential (primary) hypertension; E11.9 Type 2 diabetes mellitus without complications; F41.9 Anxiety disorder, unspecified; F32.9 Major depressive disorder, single episode, unspecified; F20.9 Schizophrenia, unspecified; Z90.710 Acquired absence of both cervix and uterus; Z98.890 Other specified postprocedural states; Z72.89 Other problems related to lifestyle; Z88.2 Allergy status to sulfonamides; Z88.1 Allergy status to other antibiotic agents; Z79.82 Long term (current) use of aspirin; Z79.2 Long term (current) use of antibiotics; Z79.899 Other long term (current) drug therapy; W19.XXXA Unspecified fall, initial encounter; Y93.89 Activity, other specified; Y92.89 Other specified places as the place of occurrence of the external cause; Y99.8 Other external cause status
CPT/HCPCS: 12001; 36415; 70450; 72125; 80320; 99285

== ENCOUNTER 2021-03-10 15:22 | Emergency (ER) | payer MEDICARE, MEDICAID ==
[~2021-03-10] VITALS: Ht 165.1 cm; Wt 68.2 kg
[~2021-03-10 15:22] MED LIST changes: -MAGN400T28 PO; +MAGN400T56 PO
[2021-03-10 15:30] VITALS: BP 143/83
[2021-03-10] MEDS ORDERED: HYDR-3972 PO (15:56)
== END 2021-03-10 16:41 | disposition home or self-care (01) ==
LOC: ER 15:23
DX: R07.81 Pleurodynia (principal); R05.9 Cough, unspecified; E78.00 Pure hypercholesterolemia, unspecified; I10 Essential (primary) hypertension; E11.9 Type 2 diabetes mellitus without complications; F41.9 Anxiety disorder, unspecified; F32.9 Major depressive disorder, single episode, unspecified; F20.9 Schizophrenia, unspecified; Z90.710 Acquired absence of both cervix and uterus; Z98.890 Other specified postprocedural states; Z72.89 Other problems related to lifestyle; Z88.2 Allergy status to sulfonamides; Z88.1 Allergy status to other antibiotic agents; Z79.82 Long term (current) use of aspirin; Z79.2 Long term (current) use of antibiotics; Z79.899 Other long term (current) drug therapy
CPT/HCPCS: 99283

== ENCOUNTER 2021-05-21 09:22 | Emergency (ER) | payer MEDICARE, MEDICAID ==
[~2021-05-21] VITALS: Ht 165.1 cm; Wt 70.0 kg
[2021-05-21 09:50] VITALS: BP 153/63
--- NOTE | 2021-05-21 10:19 | NUR ---
HOME METFORMIN TAKE PER DR SALINAS
[2021-05-21 11:21] LABS: BASOPHILS % (AUTO) 0.7 % (0-1); EOSINOPHILS # (AUTO) 0.1 X10'3 (0-0.9); EOSINOPHILS % (AUTO) 1.4 % (0-6); HEMATOCRIT 32.6 % (35.0-45.0); HEMOGLOBIN 10.7 g/dl (12.0-16.0); LYMPHOCYTES # (AUTO) 1.6 X10'3 (1.1-4.8); LYMPHOCYTES % (AUTO) 30.9 % (21-51); MEAN CORPUSCULAR HEMOGLOBIN 27.3 PG (27.0-31.0); MEAN CORPUSCULAR HGB CONC 32.9 g/dL (33.0-36.5); MEAN PLATELET VOLUME 7.5 FL (7.4-10.4); MONOCYTES # (AUTO) 0.5 X10'3 (0-0.9); MONOCYTES % (AUTO) 9.2 % (2-12); NEUTROPHILS # (AUTO) 2.9 X10'3 (1.8-7.7); NEUTROPHILS % (AUTO) 57.8 % (42-75); PLATELET COUNT 226 X10'3 (140-440); RED BLOOD COUNT 3.93 X10'6 (4.20-5.60); RED CELL DISTRIBUTION WIDTH 17.2 % (11.5-14.5); WHITE BLOOD COUNT 5.1 X10'3 (4.5-11.0)
[2021-05-21 11:33] LABS: ALANINE AMINOTRANSFERASE 19 U/L (12-78); ALBUMIN 3.3 G/DL (3.4-5.0); ALKALINE PHOSPHATASE 65 IU/L (46-116); ANION GAP 8 (8-16); ASPARTATE AMINO TRANSFERASE 13 U/L (10-37); BILIRUBIN,TOTAL 0.4 MG/DL (0.1-1.0); BLOOD UREA NITROGEN 10 MG/DL (7-18); BUN/CREATININE RATIO 16.7 (6.6-38.0); CALCIUM 8.4 MG/DL (8.5-10.1); CHLORIDE 102 MMOL/L (99-107); GLUCOSE 274 MG/DL (70-104); SODIUM 138 MMOL/L (135-145); TOTAL CARBON DIOXIDE 27.9 MMOL/L (24-32); TOTAL PROTEIN 6.6 G/DL (6.4-8.2); eGFR > 90 ML/MIN
[2021-05-21] MEDS ORDERED: ALPR-624 PO (12:01)
== END 2021-05-21 12:44 | disposition home or self-care (01) ==
LOC: ER 09:22
DX: E11.65 Type 2 diabetes mellitus with hyperglycemia (principal); R11.0 Nausea; R56.9 Unspecified convulsions; E78.00 Pure hypercholesterolemia, unspecified; I10 Essential (primary) hypertension; F41.9 Anxiety disorder, unspecified; F20.9 Schizophrenia, unspecified; Z76.0 Encounter for issue of repeat prescription; Z90.710 Acquired absence of both cervix and uterus; Z98.890 Other specified postprocedural states; Z72.89 Other problems related to lifestyle; Z88.2 Allergy status to sulfonamides; Z88.1 Allergy status to other antibiotic agents; Z79.82 Long term (current) use of aspirin; Z79.2 Long term (current) use of antibiotics; Z79.899 Other long term (current) drug therapy
CPT/HCPCS: 36415; 80053; 82948; 85025; 99283

== ENCOUNTER 2021-09-17 12:29 | Emergency (ER) | payer MEDICARE, MEDICAID ==
[~2021-09-17] VITALS: Ht 165.1 cm; Wt 64.0 kg
[~2021-09-17 12:29] MED LIST changes: +ALPR-624 PO
[2021-09-17 13:00] VITALS: BP 170/88
[2021-09-17 14:10] LABS: ALANINE AMINOTRANSFERASE 16 U/L (12-78); ALBUMIN 3.2 G/DL (3.4-5.0); ALBUMIN/GLOBULIN RATIO 0.7 (1.1-1.5); ALKALINE PHOSPHATASE 74 IU/L (46-116); ANION GAP 6 (8-16); ASPARTATE AMINO TRANSFERASE 16 U/L (10-37); BILIRUBIN,TOTAL 0.2 MG/DL (0.1-1.0); BLOOD UREA NITROGEN 12 MG/DL (7-18); BUN/CREATININE RATIO 17.9 (6.6-38.0); CALCIUM 8.9 MG/DL (8.5-10.1); CHLORIDE 106 MMOL/L (99-107); CREATININE 0.67 MG/DL (0.40-0.90); GLUCOSE 255 MG/DL (70-104); POTASSIUM 4.8 MMOL/L (3.5-5.1); SODIUM 142 MMOL/L (135-145); TOTAL PROTEIN 7.6 G/DL (6.4-8.2); eGFR 89 ML/MIN
[2021-09-17 14:12] LABS: BASOPHILS # (AUTO) 0.1 X10'3 (0-0.2); BASOPHILS % (AUTO) 1.1 % (0-1); EOSINOPHILS # (AUTO) 0.1 X10'3 (0-0.9); EOSINOPHILS % (AUTO) 2.4 % (0-6); HEMOGLOBIN 12.1 g/dl (12.0-16.0); LYMPHOCYTES # (AUTO) 2.1 X10'3 (1.1-4.8); MEAN CORPUSCULAR HEMOGLOBIN 27.9 PG (27.0-31.0); MEAN CORPUSCULAR HGB CONC 32.8 g/dL (33.0-36.5); MEAN CORPUSCULAR VOLUME 85.2 FL (78-98); MEAN PLATELET VOLUME 7.2 FL (7.4-10.4); MONOCYTES # (AUTO) 0.5 X10'3 (0-0.9); MONOCYTES % (AUTO) 8.7 % (2-12); NEUTROPHILS # (AUTO) 3.1 X10'3 (1.8-7.7); NEUTROPHILS % (AUTO) 52.8 % (42-75); PLATELET COUNT 418 X10'3 (140-440); RED BLOOD COUNT 4.34 X10'6 (4.20-5.60); RED CELL DISTRIBUTION WIDTH 15.7 % (11.5-14.5)
[2021-09-17] MEDS ORDERED: AMOX-580 PO (15:28)
[2021-09-17] MEDS ORDERED: GUAI120L55 PO (15:28)
[2021-09-17] MEDS ORDERED: BENZ-38 PO (15:32)
== END 2021-09-17 15:57 | disposition home or self-care (01) ==
LOC: ER 12:30
DX: J20.9 Acute bronchitis, unspecified (principal); R05.9 Cough, unspecified; R53.83 Other fatigue; E78.00 Pure hypercholesterolemia, unspecified; I10 Essential (primary) hypertension; E11.9 Type 2 diabetes mellitus without complications; F41.9 Anxiety disorder, unspecified; F32.A Depression, unspecified; F20.9 Schizophrenia, unspecified; Z90.710 Acquired absence of both cervix and uterus; Z98.890 Other specified postprocedural states; Z88.2 Allergy status to sulfonamides; Z88.1 Allergy status to other antibiotic agents; Z79.2 Long term (current) use of antibiotics; Z79.899 Other long term (current) drug therapy
CPT/HCPCS: 36415; 71046; 80053; 83880; 85025; 99284

== ENCOUNTER 2021-10-29 11:33 | Emergency (ER) | payer MEDICARE, MEDICAID ==
[~2021-10-29] VITALS: Ht 165.1 cm; Wt 65.0 kg
[2021-10-29 13:29] VITALS: BP 154/80
== END 2021-10-29 13:46 | disposition home or self-care (01) ==
LOC: ER 11:34
DX: S09.90XA Unspecified injury of head, initial encounter (principal); E78.00 Pure hypercholesterolemia, unspecified; I10 Essential (primary) hypertension; E11.9 Type 2 diabetes mellitus without complications; F31.9 Bipolar disorder, unspecified; Z88.2 Allergy status to sulfonamides; Z79.899 Other long term (current) drug therapy; W19.XXXA Unspecified fall, initial encounter; Y93.89 Activity, other specified; Y92.89 Other specified places as the place of occurrence of the external cause; Y99.8 Other external cause status
CPT/HCPCS: 70450; 72125; 99284

== ENCOUNTER 2022-04-30 09:46 | Emergency (ER) | payer MEDICARE, MEDICAID ==
[~2022-04-30] VITALS: Ht 165.1 cm; Wt 63.0 kg
[2022-04-30 09:54] VITALS: BP 144/88
== END 2022-04-30 12:15 | disposition left against medical advice (07) ==
LOC: ER 09:46
DX: N39.0 Urinary tract infection, site not specified (principal); R05.9 Cough, unspecified; R52 Pain, unspecified; Z53.21 Procedure and treatment not carried out due to patient leaving prior to being seen by health care provider
CPT/HCPCS: 82948

== ENCOUNTER 2022-07-16 18:02 | Emergency (ER) | payer MEDICARE, MEDICAID ==
[~2022-07-16] VITALS: Ht 165.1 cm; Wt 63.2 kg
[2022-07-16 18:43] VITALS: BP 184/96
== END 2022-07-16 20:58 | disposition left against medical advice (07) ==
LOC: ER 18:02
DX: R10.31 Right lower quadrant pain (principal); Z53.21 Procedure and treatment not carried out due to patient leaving prior to being seen by health care provider

== ENCOUNTER 2025-04-24 16:15 | Emergency (ER) | payer BC, MEDICAID ==
[~2025-04-24] VITALS: Ht 167.6 cm; Wt 63.0 kg
[~2025-04-24 16:15] MED LIST changes: +CYAN-104 PO; -CYAN-51 PO; -MECL-159 PO; +MECL-302 PO; -PHEN-557 PO; +PHEN37.511 PO; +PRAV40TA17 PO; -PRAV40TA3 PO
[2025-04-24 16:23] VITALS: BP 117/66; PULSE 92; RESP 16; TEMP 97.5; O2SAT 98
--- NOTE | 2025-04-24 16:30 | ELECTROCARDIOGRAPH REPORT ---
[facility] Test Date: 2025-04-24 Test Time: 16:29:44 Pat Name: CASSIDY RAY Department: EMERGENCY ROOM Patient ID: [id number] Room: Gender: F Senior Mechanical Designer: PARESH : [id number] Requested By: ALVINO WAYNE Order Number: [id number] Reading MD: Dr. FELIX Santos Measurements Intervals [place] Rate: 93 P: 42 [place]: 122 QRS: -29 QRSD: 95 T: 16 QT: 356 QTc: 443 Interpretive Statements Sinus rhythm Multiple ventricular premature complexes Probable left ventricular hypertrophy Anterior Q waves, possibly due to LVH Electronically Signed On 04-26-2025 9:35:[address] FELIX Santos Please click the below link to view image of tracing.
[2025-04-24 16:52] LABS: MEAN PLATELET VOLUME 7.1 FL (7.4-10.4); RED CELL DISTRIBUTION WIDTH 14.2 % (11.5-14.5)
--- NOTE | 2025-04-24 17:01 | RADIOLOGY REPORT ---
EXAM: DI CHEST,SINGLE VIEW HISTORY: CP TECHNIQUE: 1 view of the chest COMPARISON: CHEST,TWO VIEWS on DOS: 09/17/21 FINDINGS/IMPRESSION: LUNGS: Bibasilar alveolar opacities which may reflect underlying infiltrate and/or atelectasis MEDIASTINUM: Unremarkable. BONES: No acute osseous abnormality. OTHER: None.
[2025-04-24 17:16] LABS: CREATININE 0.85 MG/DL (0.40-0.90); PRO BRAIN NATRIURETIC PEPTIDE 118 PG/ML (0-125); TOTAL CARBON DIOXIDE 31.7 MMOL/L (24-32); eCRCL 59 ML/MIN; eGFR 67 ML/MIN
== END 2025-04-24 20:19 | disposition left against medical advice (07) ==
LOC: ER 16:16
DX: R42 Dizziness and giddiness (principal); R06.02 Shortness of breath; Z88.1 Allergy status to other antibiotic agents; Z88.2 Allergy status to sulfonamides; Z53.21 Procedure and treatment not carried out due to patient leaving prior to being seen by health care provider
CPT/HCPCS: 36415; 71045; 80048; 83880; 84484; 85025; 93005; 99281